=== PATIENT | male | born 1955 | race Caucasian/White ===

== ENCOUNTER 2020-05-22 10:33 | Emergency (ER) | payer OTHER ==
[~2020-05-22] VITALS: Ht 177.8 cm; Wt 126.1 kg
[2020-05-22] MEDS ORDERED: FUROSEMIDE 40 MG/4 ML INJ (LASIX) IVP STA (11:01)
--- NOTE | 2020-05-22 11:07 | ED Respiratory ---
General Chief Complaint: Respiratory Problems Stated Complaint: SOB Nursing Triage Note: Patient reports he has been short of breath for 2-3 days, states he has had some cough, no fever. States he went to the [facility] clinic and was sent to the ED for low oxygen saturations. Source: patient History of Present Illness Date Seen by Provider: May 22, 2020 Time Seen by Provider: 10:34 Initial Comments 65-year-old male presenting with complaints of increasing shortness of breath over the last 2 to 3 days. He also feels like he has been gaining weight and following up with fluid. He reports that he gets easily winded and out of breath with exertion. He denies any chest pain. He has been getting swelling in his legs. He has a history of diabetes and is on a couple types of insulin. He also takes a blood pressure medicine. He has a murmur and had an echocardiogram about a year ago but cannot remember what they told him the murmur was from. He had a negative Covid swab from [facility] on May 21. He was advised to come to ED yesterday but refused according to the [facility] when the clinic was contacted for history and med list. Allergies and Home Medications Allergies Coded Allergies: No Known Drug Allergies (Unverified , 05/22/20) Home Medications Amlodipine Besylate 10 Mg Tablet, 10 MG PO DAILY, (Reported) Atorvastatin Calcium 10 Mg Tablet, 10 MG PO DAILY, (Reported) Insulin Detemir 100 Unit/1 Ml Insuln.pen, 30 UNITS SC BID, (Reported) Insulin Lispro 100 Unit/1 Ml Insuln.pen, 20 UNITS SC TIDWM, (Reported) Lisinopril/Hydrochlorothiazide 1 Each Tablet, 1 TAB PO DAILY, (Reported) Metformin HCl 500 Mg Tab.er.24h, 1,000 MG PO BID, (Reported) Semaglutide 1 Mg/0.75 Ml Pen.injctr, 1.8 MG SC DAILY, (Reported) Patient Home Medication List Home Medication List Reviewed: Yes Review of Systems Review of Systems Constitutional: No chills, No fever; weight gain (reports over 18 pounds weight gain since seen May 08) EENTM: no symptoms reported Respiratory: No cough; dyspnea on exertion, orthopnea, short of breath; No stridor; wheezing Cardiovascular: No chest pain; edema; No palpitations, No syncope; vascular heart diseas (murmur and Echo from 09/09/19 shows Aortic Valve Stenosis, Mitral Valve Stenosis) Gastrointestinal: no symptoms reported Genitourinary: no symptoms reported Musculoskeletal: no symptoms reported Skin: no symptoms reported Psychiatric/Neurological: No Symptoms Reported Hematologic/Lymphatic: No Symptoms Reported Immunological/Allergic: no symptoms reported Past Qezccbf-Jjwisy-Rmfsvr Hx Past Med/Social Hx: Reviewed Nursing Past Med/Soc Hx Patient Social History Alcohol Use: Denies Use Smoking Status: Former Smoker Type Used: Cigarettes 2nd Hand Smoke Exposure: No Recent Infectious Disease Expo: No Recent Hopitalizations: No Seasonal Allergies Seasonal Allergies: No Past Medical History Surgeries: Yes (hand) Respiratory: No Cardiac: Yes Hypertension, Valvular Heart Disease (Aortic Valve Stenosis, Mitral Valve Stenosis August 2019 Echocardiogram) Neurological: No Genitourinary: No Gastrointestinal: No Musculoskeletal: No Endocrine: Yes Diabetes, Insulin dep HEENT: No Cancer: No Psychosocial: No Integumentary: No Physical Exam Vital Signs - First Documented 05/22/20 05/22/20 10:33 10:36 Temp 36.1 Pulse 110 Resp 24 B/P (MAP) 161/92 (115) Pulse Ox 95 O2 Delivery Non Rebreather O2 Flow Rate 15.00 Capillary Refill : Less Than 3 Seconds Height: '" Weight: lbs. oz. 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, alert, oriented x 3 Skin: normal color, warm/dry Focused Exam Lactate Level 05/22/20 11:00: Lactic Acid Level 1.11 Lactic Acid Level Laboratory Tests Test 05/22/20 11:00 Lactic Acid Level 1.11 MMOL/L (0.50-2.00) Progress/Results/Core Measures Suspected Sepsis Recent Fever Within 48 Hours: No Infection Criteria Present: Suspected New Infection New/Unexplained Altered Menta: No Sepsis Screen: Possible Sepsis Risk SIRS Temperature: Pulse: 110 Respiratory Rate: 24 Laboratory Tests 05/22/20 11:00: White Blood Count 7.7 Blood Pressure 161 /92 Mean: 115 05/22/20 11:00: Lactic Acid Level 1.11 Laboratory Tests 05/22/20 11:00: Creatinine 0.67, INR Comment 1.0, Platelet Count 312, Total Bilirubin 0.2 Results/Orders Lab Results Laboratory Tests Test 05/22/20 11:00 05/22/20 11:13 05/22/20 11:45 Range/Units White Blood Count 7.7 4.3-11.0 10^3/uL Red Blood Count 4.59 4.35-5.85 10^6/uL Hemoglobin 12.4 L 13.3-17.7 G/DL Hematocrit 41 40-54 % Mean Corpuscular Volume 89 80-99 FL Mean Corpuscular Hemoglobin 27 25-34 PG Mean Corpuscular Hemoglobin Concent 31 L 32-36 G/DL Red Cell Distribution Width 18.0 H 10.0-14.5 % Platelet Count 312 130-400 10^3/uL Mean Platelet Volume 9.8 7.4-10.4 FL Immature Granulocyte % (Auto) 0 % Neutrophils (%) (Auto) 79 H 42-75 % Lymphocytes (%) (Auto) 12 12-44 % Monocytes (%) (Auto) 7 0-12 % Eosinophils (%) (Auto) 2 0-10 % Basophils (%) (Auto) 0 0-10 % Neutrophils # (Auto) 6.1 1.8-7.8 X 10^3 Lymphocytes # (Auto) 0.9 L 1.0-4.0 X 10^3 Monocytes # (Auto) 0.6 0.0-1.0 X 10^3 Eosinophils # (Auto) 0.1 0.0-0.3 10^3/uL Basophils # (Auto) 0.0 0.0-0.1 10^3/uL Immature Granulocyte # (Auto) 0.0 0.0-0.1 10^3/uL Prothrombin Time 13.4 12.2-14.7 SEC INR Comment 1.0 0.8-1.4 Activated Partial Thromboplast Time 31 24-35 SEC D-Dimer 1.85 H 0.00-0.49 UG/ML Sodium Level 144 135-145 MMOL/L Potassium Level 4.4 3.6-5.0 MMOL/L Chloride Level 105 98-107 MMOL/L Carbon Dioxide Level 32 21-32 MMOL/L Anion Gap 7 5-14 MMOL/L Blood Urea Nitrogen 21 H 7-18 MG/DL Creatinine 0.67 0.60-1.30 MG/DL Estimat Glomerular Filtration Rate > 60 BUN/Creatinine Ratio 31 Glucose Level 150 H 70-105 MG/DL Lactic Acid Level 1.11 0.50-2.00 MMOL/L Calcium Level 9.1 8.5-10.1 MG/DL Corrected Calcium 9.7 8.5-10.1 MG/DL Magnesium Level 1.6 1.6-2.4 MG/DL Total Bilirubin 0.2 0.1-1.0 MG/DL Aspartate Amino Transf (AST/SGOT) 20 5-34 U/L Alanine Aminotransferase (ALT/SGPT) 22 0-55 U/L Alkaline Phosphatase 131 40-136 U/L Troponin I < 0.30 <0.30 NG/ML C-Reactive Protein 1.34 H <0.50 MG/DL Pro-B-Type Natriuretic Peptide 255.2 H <75.0 PG/ML Total Protein 6.8 6.4-8.2 GM/DL Albumin 3.3 3.2-4.5 GM/DL Blood Gas Puncture Site LT RADIAL Blood Gas Patient Temperature 36.1 Arterial Blood pH 7.44 H 7.37-7.43 Arterial Blood Partial Pressure CO2 53 H 35-45 MMHG Arterial Blood Partial Pressure O2 86 79-93 MMHG Arterial Blood HCO3 36 H 23-27 MMOL/L Arterial Blood Total CO2 37.6 H 21.0-31.0 MMOL/L Arterial Blood Oxygen Saturation 97 94-100 % Arterial Blood Base Excess 10.1 H -2.5-2.5 MMOL/L Anoop Test OK Blood Gas Ventilator Setting NO Blood Gas Inspired Oxygen 8 L Urine Color YELLOW Urine Clarity CLEAR Urine pH 6.5 5-9 Urine Specific Center 1.025 H 1.016-1.022 Urine Protein 2+ H NEGATIVE Urine Glucose (UA) NEGATIVE NEGATIVE Urine Ketones NEGATIVE NEGATIVE Urine Nitrite NEGATIVE NEGATIVE Urine Bilirubin NEGATIVE NEGATIVE Urine Urobilinogen 0.2 < = 1.0 MG/DL Urine Leukocyte Esterase NEGATIVE NEGATIVE Urine RBC (Auto) 1+ H NEGATIVE Urine RBC 5-10 H /HPF Urine WBC 0-2 /HPF Urine Squamous Epithelial Cells NONE /HPF Urine Crystals NONE /LPF Urine Bacteria NEGATIVE /HPF Urine Casts NONE /LPF Urine Mucus NEGATIVE /LPF Urine Culture Indicated NO My Orders Orders - ROCKY CORTÉS MD Monitor-Rhythm Ecg Trace Only (05/22/20 10:57) Cbc With Automated Diff (05/22/20 10:57) Comprehensive Metabolic Panel (05/22/20 10:57) Crp Fs (05/22/20 10:57) Troponin I Fs (05/22/20 10:57) Protime With Inr (05/22/20 10:57) Partial Thromboplastin Time (05/22/20 10:57) Ekg Tracing (05/22/20 10:57) Ed Iv/Invasive Line Start (05/22/20 10:57) Fibrin Degradation Products (05/22/20 10:57) Probnp Fs (05/22/20 10:57) Magnesium (05/22/20 10:57) Ua Culture If Indicated (05/22/20 10:57) O2 (05/22/20 10:57) Chest 1 View Ap/Pa Only (05/22/20 10:57) Blood Culture (05/22/20 10:57) Lactic Acid Analyzer (05/22/20 10:57) Furosemide Injection (Lasix Injection) (05/22/20 11:01) Arterial Blood Gas (05/22/20 11:15) Ct Angio Chest W (05/22/20 12:11) Iohexol Injection (Omnipaque 350 Mg/Ml 1 (05/22/20 12:30) Received Contrast (Hold Metformin- Contr (05/22/20 12:30) Sodium Chloride Flush (Catheter Flush Sy (05/22/20 12:30) Ns (Ivpb) (Sodium Chloride 0.9% Ivpb Bag (05/22/20 12:30) Ceftriaxone For Iv Use (Rocephin For I (05/22/20 13:23) Azithromycin Injection (Zithromax Inject (05/22/20 13:23) Medications Given in ED Current Medications Medications Dose Ordered Sig/Alexander Route Start Time Stop Time Status Last Admin Dose Admin Iohexol 125 ml ONCE ONCE IV 05/22/20 12:30 05/22/20 12:31 DC 05/22/20 12:50 125 ML Sodium Chloride 10 ml NEEDED PRN IV 05/22/20 12:30 05/22/20 12:50 10 ML Sodium Chloride 100 ml ONCE ONCE IV 05/22/20 12:30 05/22/20 12:31 DC 05/22/20 12:50 80 ML Vital Signs/I&O 05/22/20 05/22/20 10:33 10:36 Temp 36.1 Pulse 110 Resp 24 B/P (MAP) 161/92 (115) Pulse Ox 95 95 O2 Delivery Non Rebreather Non Rebreather O2 Flow Rate 15.00 Capillary Refill : Less Than 3 Seconds Blood Pressure Mean: 115 Progress Note #1: Progress Note check labs, ECG, CXR, blood cultures and lactic acid. With his tachycardia and shortness of breath with hypoxia check ABG and place on cardiac potato chip frier to watch his heart rate and blood pressure and oxygen saturation. Initially he is sinus tachycardia without ectopy. With his edema and decreased breath sounds will try giving 80 mg of IV lasix to see if that will help mobilize fluid and make a difference with his breathing. Progress Note #2: Time: 11:39 Progress Note Blood gas is showing pH of 7.44 with pCO2 of 53, pO2 of 86 and HCO3 of 36 on 8 Lpm high flow O2 by n.c. His CBC shows WBC of 7.7 with left shift and Hgb 12.4. ECG with sinus tachycardia and CXR with infiltrate. On my review of CXR he appears to have signs of failure consistent with his weight gain. Progress Note #3: Time: 12:10 Progress Note Chemistry shows negative Troponin at <0.3. proBNP slightly elevated to 255. CRP at 1.34. Cr normal at 0.67. His Lactic Acid is normal at 1.11. He has an elevated D dimer as well at 1.85 so will add on CT angiogram for check to see if he has a blood clot. This will also check to see more detail of his lungs and the possible pneumonia vs pulmonary edema. Pt requesting admit to [facility] since his follows with Dr. Reynaldo Welsh and he would like to go to that hospital rather than go to [facility] for admit. Updated pt on findings and that depending on scan he will get antibiotics and or blood thinner. He was already given Lasix 80 mg IV for his weight gain and edema in his legs. Progress Note #4: Time: 13:[address] chest shows no PE but he has bilateral basilar pneumonia and signs of fail ure. [facility] was contacted and they do have beds available and the nursing rocket propellant plant supervisor advised to call Dr. Welsh and if he accepted the patient to call back and then could have a bed assignment. Will start Rocephin and Zithromax for community acquired pneumonia. Progress Note #5: Time: 13:38 Progress Note D/w Dr. Reynaldo Welsh and he accepted pt for transfer to [facility]. Will continue with treatment for pneumonia and fluid overload. send copy of the Echo and may get a repeat study done since he has signs of failure now. ECG Initial ECG Impression Date: May 22, 2020 Initial ECG Impression Time: 11:03 Initial ECG Rate: 104 Initial ECG Rhythm: S.Tach Initial ECG Comparisson: No Previous ECG Available Comment Sinus tachycardia with heart rate of 104 bpm. Incomplete right bundle branch block. Left atrial enlargement. NJ interval 141 ms. QT interval 383 ms with a QTc interval [address] elevation. No prior tracing available for comparison. Diagnostic Imaging Diagonstic Imaging: Xray Plain Films/CT/US/NM/MRI: chest Comments NAME: [facility] REC#: [id number] PT STATUS: REG ER : 1955 PHYSICIAN: ROCKY CORTÉS MD ADMIT DATE: 05/22/20/ER FS Signed Date of Exam:05/22/20 CHEST 1 VIEW AP/PA ONLY INDICATION: Hypoxemia. EXAMINATION: Portable chest at 11:11 AM. FINDINGS: There are some patchy alveolar infiltrates in the left perihilar and left basilar pulmonary regions. The right lung is clear. IMPRESSION: Patchy infiltrates in the left lung, suspicious for pneumonia. Dictated by: Dictated on workstation # [id number] Dict: 05/22/20 1125 Trans: 05/22/20 1129 [id number] Interpreted by: BETI PEREZ MD Electronically signed by: BETI PEREZ MD 05/22/20 1129 Diagonstic Imaging: Ultrasound (Echocardiogram from August 2019) Comments Echocardiogram performed on September 102019 Impression: 1. Technically difficult study. 2. Normal left ventricular systolic function, estimated ejection fraction 55 to 60%. 3. Mild concentric left ventricular hypertrophy. 4. Mild diastolic dysfunction. 5. Moderate aortic valve stenosis with a mean gradient of 25 mmHg. 6. Mild left atrial enlargement. 7. Calcification of left mitral valve with immobility of the posterior mitral valve leaflet leading to mild to moderate mitral stenosis. 8. Pulmonary hypertension with estimated PA systolic pressure of 44 mmHg. 9. Small patent foramen ovale noted by color flow and Doppler. This was read by Dr. Trevor Salazar DO. Diagonstic Imaging: CT Plain Films/CT/US/NM/MRI: chest Comments NAME: [facility] REC#: [id number] PT STATUS: REG ER : 1955 PHYSICIAN: ROCKY CORTÉS MD ADMIT DATE: 05/22/20/ER FS Draft Date of Exam:05/22/20 CT ANGIO CHEST W PROCEDURE: CT angiography of the chest with contrast. TECHNIQUE: Multiple contiguous axial images were obtained through the chest after uneventful bolus administration of intravenous contrast. 3D reconstructed CTA MIP acquisitions were also performed. Auto Exposure Controls were utilized during the CT exam to meet ALARA standards for radiation dose reduction. INDICATION: Shortness of breath elevated D-dimer. There are no prior CTA chest examinations available for comparison. The plain film examination of the chest performed earlier today at 11:10 a.m. noted cardiomegaly and prominence of the central pulmonary vascularity. There are also patchy alveolar/interstitial infiltrates involving the lung bases as well as small bilateral pleural effusions. On this exam those findings are again evident. The fluid in the right lung base measures approximately 3.9 cm in maximum depth while left-sided effusion is estimated to be 1.9 cm. In addition there is also a 2.4 x 7.3 cm collection of fluid in the region of the minor fissure on the left as well as a 3.1 x 4.9 cm fluid collection adjacent to the left heart border.. There is also pneumonia/atelectasis involving both lung bases and both perihilar regions. The central pulmonary vascularity is prominent and I suspect there is an element of pulmonary congestion present as well. The heart is mildly enlarged. There are no coronary artery calcifications noted. The aorta is not abnormally dilated and there is no sign of dissection. There is no definite defect within the pulmonary arteries to indicate a pulmonary embolus. There are diffuse borderline enlarged pretracheal nodes on the right. These are nonspecific and may be reactive in nature. The thyroid gland is generally unremarkable. The sections through the upper abdomen failed to show any sign of an acute abnormality. The bone windows show no sign of a fracture or of a destructive lesion. IMPRESSION: 1. There is bibasilar pneumonia/atelectasis and bilateral pleural effusions. The heart is also mildly enlarged and the central pulmonary vasculature is prominent suggesting that there is an element of pulmonary congestion present as well. 2. There is no evidence for an aortic aneurysm or dissection. There is no sign of a pulmonary embolus. Dictated on workstation # [id number] Dict: 05/22/20 1256 Trans: 05/22/20 1308 [facility] [id number] Interpreted by: TEA HAZEL MD Electronically signed by: Critical Care Note Critical Care Total Time (minutes) 75 minutes Progress 75 minutes of critical care time was spent in direct care of the patient. This time excluding separately billable procedures. The time was spent in obtaining history from the patient and medical records from the clinic, ordering tests and reviewing results, ordering interventions and reviewing response, discussion of results with the patient and with consultants, documentation in the chart. Patient was at imminent risk of decompensation from respiratory distress and required direct care and management. Departure Impression Primary Impression: Pneumonia of both lower lobes due to infectious organism Additional Impressions: Hypoxia Peripheral edema Pulmonary edema Qualified Codes: J81.0 - Acute pulmonary edema Disposition: XF [facility] Condition: Stable Transfer Transfer Reason: Patient preference (Pt requests [facility] as his follows with Dr. Reynaldo Welsh and he states it is closer to home) Time Spoke to Accepting Phy: 13:38 Transfer Progress Notes D/w Dr. Reynaldo Welsh for [facility] and he accepted pt for transfer. will continue with oxygen and try to titrate down on high flow O2. Ok with the dose of Lasix and Rocephin and Zithromax. If he starts to cough up sputum can try to get a sputum culture but blood cultures pending. Transfer Facility: [facility] Method of Transfer: EMS ROCKY CORTÉS MD May 22, 2020 11:07
[2020-05-22] MEDS ORDERED: AMLO-251 PO (11:16)
[2020-05-22] MEDS ORDERED: LISI1TAB46 PO (11:16)
[2020-05-22] MEDS ORDERED: METF-865 PO (11:16)
[2020-05-22] MEDS ORDERED: SEMA1PEN SC (11:16)
[2020-05-22] MEDS ORDERED: INSU100I23 SC (11:16)
[2020-05-22] MEDS ORDERED: ATOR10TA66 PO (11:16)
[2020-05-22] MEDS ORDERED: INSU100I29 SC (11:16)
[2020-05-22 11:17] LABS: BASOPHILS % (AUTO) 0 % (0-10); EOSINOPHILS % (AUTO) 2 % (0-10); HEMATOCRIT 41 % (40-54); HEMOGLOBIN 12.4 G/DL (13.3-17.7); LYMPHOCYTES % (AUTO) 12 % (12-44); MEAN CORPUSCULAR HEMOGLOBIN 27 PG (25-34); MEAN CORPUSCULAR HGB CONC 31 G/DL (32-36); MEAN CORPUSCULAR VOLUME 89 FL (80-99); MEAN PLATELET VOLUME 9.8 FL (7.4-10.4); MONOCYTES % (AUTO) 7 % (0-12); NEUTROPHILS % (AUTO) 79 % (42-75); PLATELET COUNT 312 10^3/uL (130-400); WHITE BLOOD COUNT 7.7 10^3/uL (4.3-11.0)
[2020-05-22 11:18] LABS: EOSINOPHILS # (AUTO) 0.1 10^3/uL (0.0-0.3); LYMPHOCYTES # (AUTO) 0.9 X 10^3 (1.0-4.0); MONOCYTES # (AUTO) 0.6 X 10^3 (0.0-1.0); NEUTROPHILS # (AUTO) 6.1 X 10^3 (1.8-7.8)
--- NOTE | 2020-05-22 11:28 | Diagnostic Imaging Report ---
INDICATION: Hypoxemia. EXAMINATION: Portable chest at 11:11 AM. FINDINGS: There are some patchy alveolar infiltrates in the left perihilar and left basilar pulmonary regions. The right lung is clear. IMPRESSION: Patchy infiltrates in the left lung, suspicious for pneumonia. Dictated by: Dictated on workstation # [id number]
[2020-05-22 11:33] LABS: ABG PCO2 53 MMHG (35-45); ABG PH 7.44 (7.37-7.43); ABG PO2 86 MMHG (79-93)
[2020-05-22 11:34] LABS: ABG BASE EXCESS 10.1 MMOL/L (-2.5-2.5); ABG OXYGEN SATURATION 97 % (94-100); ABG TCO2 37.6 MMOL/L (21.0-31.0); ALLENS TEST OK; INSPIRED O2 8 L; PATIENT TEMP 36.1; VENTILATOR NO
[2020-05-22 11:59] LABS: PROTHROMBIN TIME PATIENT 13.4 SEC (12.2-14.7)
[2020-05-22 12:00] LABS: BILIRUBIN,URINE NEGATIVE (NEGATIVE); CLARITY,URINE CLEAR; COLOR,URINE YELLOW; GLUCOSE, URINE (UA) NEGATIVE (NEGATIVE); KETONES,URINE NEGATIVE (NEGATIVE); NITRITE,URINE NEGATIVE (NEGATIVE); PH,URINE 6.5 (5-9); PROTEIN,URINE 2+ (NEGATIVE)
[2020-05-22 12:01] LABS: BACTERIA,URINE NEGATIVE /HPF; LEUKOCYTE ESTERASE ,URINE NEGATIVE (NEGATIVE); WBC,URINE 0-2 /HPF
[2020-05-22 12:02] LABS: POTASSIUM 4.4 MMOL/L (3.6-5.0); SODIUM 144 MMOL/L (135-145)
[2020-05-22 12:03] LABS: ALANINE AMINOTRANSFERASE 22 U/L (0-55); ALBUMIN 3.3 GM/DL (3.2-4.5); ALKALINE PHOSPHATASE 131 U/L (40-136); BILIRUBIN,TOTAL 0.2 MG/DL (0.1-1.0); BUN/CREATININE RATIO 31; CALCIUM 9.1 MG/DL (8.5-10.1); CARBON DIOXIDE 32 MMOL/L (21-32); CHLORIDE 105 MMOL/L (98-107); CREATININE SERUM 0.67 MG/DL (0.60-1.30); GFR ESTIMATED > 60; GLUCOSE 150 MG/DL (70-105); TOTAL PROTEIN 6.8 GM/DL (6.4-8.2)
[2020-05-22 12:04] LABS: MAGNESIUM 1.6 MG/DL (1.6-2.4)
[2020-05-22] MEDS ORDERED: IOHEXOL 350 MG/ML 150 ML (OMNIPAQUE 350) VIAL IV ONE (12:30)
[2020-05-22] MEDS ORDERED: NS 100 ML (IVPB) BAG IV ONE (12:30)
[2020-05-22] MEDS ORDERED: CATHETER FLUSH 10 ML SYR IV PRN (12:30)
[2020-05-22] MEDS ORDERED: HOLD METFORMIN - RECEIVED CONTRAST 20 ML VIAL IV SCH (12:30)
--- NOTE | 2020-05-22 13:09 | Diagnostic Imaging Report ---
PROCEDURE: CT angiography of the chest with contrast. TECHNIQUE: Multiple contiguous axial images were obtained through the chest after uneventful bolus administration of intravenous contrast. 3D reconstructed CTA MIP acquisitions were also performed. Auto Exposure Controls were utilized during the CT exam to meet ALARA standards for radiation dose reduction. INDICATION: Shortness of breath elevated D-dimer. There are no prior CTA chest examinations available for comparison. The plain film examination of the chest performed earlier today at 11:10 a.m. noted cardiomegaly and prominence of the central pulmonary vascularity. There are also patchy alveolar/interstitial infiltrates involving the lung bases as well as small bilateral pleural effusions. On this exam those findings are again evident. The fluid in the right lung base measures approximately 3.9 cm in maximum depth while left-sided effusion is estimated to be 1.9 cm. In addition there is also a 2.4 x 7.3 cm collection of fluid in the region of the minor fissure on the left as well as a 3.1 x 4.9 cm fluid collection adjacent to the left heart border.. There is also pneumonia/atelectasis involving both lung bases and both perihilar regions. The central pulmonary vascularity is prominent and I suspect there is an element of pulmonary congestion present as well. The heart is mildly enlarged. There are no coronary artery calcifications noted. The aorta is not abnormally dilated and there is no sign of dissection. There is no definite defect within the pulmonary arteries to indicate a pulmonary embolus. There are diffuse borderline enlarged pretracheal nodes on the right. These are nonspecific and may be reactive in nature. The thyroid gland is generally unremarkable. The sections through the upper abdomen failed to show any sign of an acute abnormality. The bone windows show no sign of a fracture or of a destructive lesion. IMPRESSION: 1. There is bibasilar pneumonia/atelectasis and bilateral pleural effusions. The heart is also mildly enlarged and the central pulmonary vasculature is prominent suggesting that there is an element of pulmonary congestion present as well. 2. There is no evidence for an aortic aneurysm or dissection. There is no sign of a pulmonary embolus either. Dictated by: Dictated on workstation # [id number]
[2020-05-22] MEDS ORDERED: AZITHROMYCIN INJECTION 500 MG in NS (IVPB) 250 ML IV STA (13:23)
[2020-05-22] MEDS ORDERED: cefTRIAXone FOR IV USE 1,000 MG in WATER (STERILE) FOR INJECTION 10 ML IV STA (13:23)
[2020-05-22 14:30] VITALS: BP 148/81
== END 2020-05-22 14:30 | disposition short-term general hospital (02) ==
LOC: EDUNIT# 10:33 → ER FS 10:36
DX: J18.1 Lobar pneumonia, unspecified organism (principal); R60.0 Localized edema; R79.89 Other specified abnormal findings of blood chemistry; R00.0 Tachycardia, unspecified; I10 Essential (primary) hypertension; E11.9 Type 2 diabetes mellitus without complications; E66.9 Obesity, unspecified; Z68.39 Body mass index [BMI] 39.0-39.9, adult; Z87.891 Personal history of nicotine dependence; Z79.4 Long term (current) use of insulin
CPT/HCPCS: 36415; 71045; 71275; 80053; 81000; 82805; 83605; 83735; 83880; 84484; 85025; 85379; 85610; 85730; 86141; 87040; 93041

== ENCOUNTER → 2021-07-16 | Outpatient (CLI) | payer OTHER ==
[~2021-07-16] VITALS: Ht 180.3 cm; Wt 109.9 kg
[~2021-07-16] MED LIST: AMLO-251 PO; ASPI81TA16 PO; ATOR10TA66 PO; CEPH500T PO; INSU100I23 SC; INSU100I29 SC; LIRA0.6P3 SQ; LISI1TAB46 PO; METF-865 PO; OXYC1TAB11 PO; SEMA1PEN SC
== END | disposition home or self-care (01) ==
LOC: PREOP 05:37
PROVIDERS: ATTEND Urology
DX: Z01.818 Encounter for other preprocedural examination (principal)

== ENCOUNTER 2021-07-23 06:41 | Day surgery (SDC) | payer OTHER ==
[2021-07-23] VITALS (12 sets, daily range): BP systolic 125–155; BP diastolic 71–95
[~2021-07-23] VITALS: Ht 180.3 cm; Wt 109.9 kg
[~2021-07-23 06:41] MED LIST changes: -CEPH500T PO; -OXYC1TAB11 PO
[2021-07-23] MEDS ORDERED: ceFAZolin INJECTION 1,000 MG VIAL IV ONE (07:15)
--- NOTE | 2021-07-23 07:15 | Progress Note-Pre Operative ---
Pre-Operative Progress Note H&P Reviewed The H&P was reviewed, patient examined and no changes noted. Date Seen by Provider: July 23, 2021 Time Seen by Provider: 07:15 Date H&P Reviewed: July 23, 2021 Time H&P Reviewed: 07:15 Pre-Operative Diagnosis: LT LARGE HYDROCELE RANDALL SCHOFIELD MD July 23, 2021 07:15
--- NOTE | 2021-07-23 07:48 | Progress Note-Post Operative ---
Post-Operative Progess Note Surgeon (s)/Lean [employer] Senior Specialist (s) Surgeon RANDALL SCHOFIELD MD Lean [employer] Senior Specialist: NONE Pre-Operative Diagnosis LT LARGE HYDROCELE Post-Operative Diagnosis SAME Procedure & Operative Findings Date of Procedure 07/23/21 Procedure Performed/Findings LT HYDROCELECTOMY Anesthesia Type GENERAL Estimated Blood Loss Estimated blood loss (mL): 50 cc Specimens/Packing Specimens Removed HYDROCELE SAC Packin/4" KRYSTA DRAIN RANDALL SCHOFIELD MD July 23, 2021 07:48
--- NOTE | 2021-07-23 07:51 | Discharge Inst-Urology ---
Discharge Inst-Urology Patient Instructions/Follow Up Plan/Assessment/Instructions Please make appointment to been seen in office in 2 weeks. REST till then and scrotal support Come to office tomorrow at 9am to DC drain then start showers no bath Keep bowels soft and moving Hold ASA Increase oral fluids for 48 hours and then as needed. Diet as tolerated. If questions or concerns contact your physician Or seek help at emergency department. RANDALL SCHOFIELD MD July 23, 2021 07:51
[2021-07-23] MEDS ORDERED: LACTATED RINGERS 1,000 ML IV PRN (08:00)
[2021-07-23] MEDS ORDERED: ONDANSETRON 4 MG/2 ML (SDV) Z0FRAN ONE (08:13)
[2021-07-23] MEDS ORDERED: LIDOCAINE PF 2% 5 ML (XYLOCAINE) VIAL ONE (08:13)
[2021-07-23] MEDS ORDERED: proPOfol 200 MG/20 ML (DIPRIVAN) VIAL IV ONE (08:13)
[2021-07-23] MEDS ORDERED: MIDAZOLAM 2 MG/2 ML (VERSED) VIAL ONE (08:14)
[2021-07-23] MEDS ORDERED: fentaNYL INJ 100 MCG/2 ML AMP ONE (08:14)
[2021-07-23] MEDS ORDERED: SEVOFLURANE (ULTANE) 15 ML INHAL SOLN ONE (09:55)
[2021-07-23] MEDS ORDERED: morphine INJ 10 MG/ML 1ML (SYR OR VIAL) IVP ONE (10:00)
[2021-07-23] MEDS ORDERED: ONDANSETRON 4 MG/2 ML (SDV) Z0FRAN IVP PRN (10:00)
[2021-07-23] MEDS ORDERED: CEPH500T PO (11:26)
[2021-07-23] MEDS ORDERED: OXYC1TAB11 PO (11:27)
--- NOTE | 2021-07-23 11:48 | OPERATIVE REPORT ---
DATE OF SERVICE: 07/23/2021 PREOPERATIVE DIAGNOSIS: Left large hydrocele. POSTOPERATIVE DIAGNOSIS: Left large hydrocele. OPERATION PERFORMED: Left hydrocelectomy. SURGEON: Oscar Schofield MD ANESTHESIA: General. COMPLICATIONS: None. DESCRIPTION OF PROCEDURE: Under satisfactory general anesthesia, the patient in supine position, genitalia, abdomen and thigh were prepped and draped in the usual sterile fashion. Incision was made in the median raphe, carried through skin, subcutaneous tissue and fascia. Bleeders were cauterized as dissection was proceeding. A very large amount of fluid was suctioned. The testicle and appendages were delivered into the wound. It was found that the testicle was small and adherent and stuck to the wall of the scrotum in the middle. I went ahead and excised the hydrocele sac and the edges were sutured with a running hemostatic 3-0 chromic catgut suture. Hemostasis was complete. The scrotum was drained with a one-quarter of an inch [place] drain brought through a separate stab wound at the bottom of the scrotum secured in position with 3-0 chromic. Closure was performed in layer, the dartos with a running 3-0 chromic catgut, taking care to avoid the testicle and its spermatic cord and then the skin with interrupted 4-0 Vicryl. Telfa, fluffs and scrotal support was applied. Estimated blood loss was less than 50 mL, none of which was replaced. Needle, sponge, instruments correct x2. The patient tolerated the procedure and anesthesia well and was sent to recovery room in stable condition. Job ID: [id number] DocumentID: [id number] Dictated Date: 07/23/2021 09:56:33 Back Maker Date: 07/23/2021 11:46:41 Dictated By: OSCAR SCHOFIELD MD
--- NOTE | 2021-07-23 12:00 | Anesthesia-General Post-Op ---
General Patient Condition Mental Status/LOC: Same as Preop Cardiovascular: Satisfactory Nausea/Vomiting: Absent Respiratory: Satisfactory Pain: Controlled Complications: Absent Post Op Complications Complications None Follow Up Care/Instructions Patient Instructions None needed. Anesthesia/Patient Condition Patient Condition Patient is doing well, ready for discharge to home with no complaints, stable vital signs, no apparent adverse anesthesia problems. BRAIN HERRMANN DO July 23, 2021 12:00
== END 2021-07-23 12:03 | disposition home or self-care (01) ==
LOC: SDC 06:41
PROVIDERS: ATTEND Urology
DX: N43.3 Hydrocele, unspecified (principal); E66.9 Obesity, unspecified; Z68.34 Body mass index [BMI] 34.0-34.9, adult; Z87.891 Personal history of nicotine dependence
CPT/HCPCS: 82947; 87081

== ENCOUNTER 2021-08-07 21:11 | Emergency (ER) | payer OTHER ==
[2021-07-23 12:03] VITALS: BP 139/78
[~2021-08-07 21:11] MED LIST changes: +CEPH500T PO; +OXYC1TAB11 PO
[2021-08-07 23:05] LABS: BASOPHILS % (AUTO) 0 % (0-10); EOSINOPHILS # (AUTO) 0.3 10^3/uL (0.0-0.3); EOSINOPHILS % (AUTO) 4 % (0-10); HEMATOCRIT 40 % (40-54); HEMOGLOBIN 12.9 g/dL (13.3-17.7); LYMPHOCYTES # (AUTO) 0.9 10^3/uL (1.0-4.0); LYMPHOCYTES % (AUTO) 12 % (12-44); MEAN CORPUSCULAR HEMOGLOBIN 29 pg (25-34); MEAN CORPUSCULAR HGB CONC 33 g/dL (32-36); MEAN CORPUSCULAR VOLUME 88 fL (80-99); MEAN PLATELET VOLUME 8.9 fL (9.0-12.2); MONOCYTES # (AUTO) 0.5 10^3/uL (0.0-1.0); MONOCYTES % (AUTO) 7 % (0-12); NEUTROPHILS # (AUTO) 5.7 10^3/uL (1.8-7.8); NEUTROPHILS % (AUTO) 76 % (42-75); PLATELET COUNT 572 10^3/uL (130-400); WHITE BLOOD COUNT 7.5 10^3/uL (4.3-11.0)
[2021-08-07 23:19] LABS: ALBUMIN 3.4 GM/DL (3.2-4.5); POTASSIUM 4.4 MMOL/L (3.6-5.0)
[2021-08-07 23:20] LABS: CALCIUM 9.7 MG/DL (8.5-10.1)
[2021-08-07 23:22] LABS: TOTAL PROTEIN 7.8 GM/DL (6.4-8.2)
[2021-08-07 23:23] LABS: BILIRUBIN,TOTAL 0.2 MG/DL (0.1-1.0)
[2021-08-07 23:25] LABS: CREATININE SERUM 0.8 MG/DL (0.60-1.30)
[2021-08-08] MEDS ORDERED: METO-333 PO (10:36)
[2021-08-08] MEDS ORDERED: INSU100I29 SQ ×2 (10:36)
[2021-08-08] MEDS ORDERED: CHOL20002 PO (10:36)
[2021-08-08] MEDS ORDERED: FURO20TA4 PO (10:36)
[2021-08-08] MEDS ORDERED: ATOR40TA70 PO (10:36)
[2021-08-08] MEDS ORDERED: DAPA1TAB3 PO (10:36)
[2021-08-08] MEDS ORDERED: ASPI-1238 PO (10:36)
[2021-08-08] MEDS ORDERED: INSU100I23 SQ (10:36)
== END 2021-08-07 23:36 | disposition other institution (70) ==
LOC: EDUNIT# 21:11 → ER 21:15
DX: N50.89 Other specified disorders of the male genital organs (principal)
CPT/HCPCS: 36415; 80053; 85025

== ENCOUNTER 2021-08-07 23:31 | Observation (INO) | payer OTHER ==
[~2021-08-07] VITALS: Ht 180.3 cm; Wt 104.1 kg
[2021-08-07] MEDS ORDERED: oxyCODONE/APAP 5/325MG (PERCOCET 5) TABLET PO PRN (23:45)
[2021-08-08 00:10] VITALS: BP 130/66
[2021-08-08] MEDS: LACTATED RINGERS 1,000 ML IV SCH ×2 (00:25→14:20)
[2021-08-08] MEDS: CEFEPIME 1,000 MG/NS 50 ML IVPB IV SCH ×8 (01:46→18:32)
[2021-08-08] MEDS: VANCOMYCIN 1 GM/NS 250 ML IVPB IV SCH ×4 (02:46→04:00)
[2021-08-08 04:00] VITALS: BP 167/79
[2021-08-08 05:54] LABS: POTASSIUM 4.2 MMOL/L (3.6-5.0)
[2021-08-08 05:56] LABS: CALCIUM 9.1 MG/DL (8.5-10.1)
[2021-08-08 05:57] LABS: TOTAL PROTEIN 6.8 GM/DL (6.4-8.2)
[2021-08-08 05:59] LABS: BILIRUBIN,TOTAL 0.2 MG/DL (0.1-1.0)
[2021-08-08 06:00] LABS: CREATININE SERUM 0.65 MG/DL (0.60-1.30)
[2021-08-08 06:08] LABS: HEMATOCRIT 37 % (40-54); HEMOGLOBIN 12.1 g/dL (13.3-17.7); MEAN CORPUSCULAR HEMOGLOBIN 29 pg (25-34); MEAN CORPUSCULAR HGB CONC 33 g/dL (32-36); MEAN CORPUSCULAR VOLUME 89 fL (80-99); MEAN PLATELET VOLUME 9.3 fL (9.0-12.2); PLATELET COUNT 492 10^3/uL (130-400); WHITE BLOOD COUNT 6.1 10^3/uL (4.3-11.0)
[2021-08-08 08:21] VITALS: BP 152/83
[2021-08-08] MEDS ORDERED: CHOL20002 PO (10:36)
[2021-08-08] MEDS ORDERED: METO-333 PO (10:36)
[2021-08-08] MEDS ORDERED: ATOR40TA70 PO (10:36)
[2021-08-08] MEDS ORDERED: ASPI-1238 PO (10:36)
[2021-08-08] MEDS ORDERED: INSU100I23 SQ (10:36)
[2021-08-08] MEDS ORDERED: FURO20TA4 PO (10:36)
[2021-08-08] MEDS ORDERED: INSU100I29 SQ ×2 (10:36)
[2021-08-08] MEDS ORDERED: DAPA1TAB3 PO (10:36)
--- NOTE | 2021-08-08 11:02 | Consultation - Hospitalist ---
HPI History of Present Illness: HPI/Chief Complaint Patient is 66-year-old male with past medical history of insulin- dependent diabetes type 2, hypertension, hyperlipidemia who presented to outside hospital due to scrotal edema. He underwent a hydrocelectomy on July [address] Jimenez. He is being admitted for IV antibiotics to rule out abscess. I am consulted for medical management. He reports that he wears a Dexcom to monitor his blood sugars and is compliant with his insulin. He states his blood sugars normally run around 130. Source: patient Date Seen 08/08/21 Attending Physician Reynaldo Welsh MD PCP Admitting Physician: Oscar Jimenez MD Attending Physician: Oscar Jimenez MD Referring Physician Date of Admission August 07, 2021 at 23:31 Home Medications & Allergies Home Medications Reviewed patient Home Medication Reconciliation performed by pharmacy medication reconciliations cartographic technician and/or nursing. Patients Allergies have been reviewed. Allergies Allergies Coded Allergies No Known Drug Allergies (Unverified05/22/20) Past Ayeyyls-Dwtavg-Ipuxqd Hx Patient Social History Tobacco Use?: No Substance use?: No Alcohol Use?: No Immunizations Up To Date Date of Influenza Vaccine: Jan 15, 2021 First/Initial COVID19 Vaccinat: 2020 Second COVID19 Vaccination Kory: 2020 Seasonal Allergies Seasonal Allergies: No Current Status Advance Directives: No Communicates: Verbally Primary Language: Macanese Preferred Spoken Language: Macanese Is interpretation needed?: No Implanted or Applied Medical D: Other Past Medical History Surgeries: Orthopedic Currently Using CPAP: No Currently Using BIPAP: No Hypertension, Valvular Heart Disease Diabetes, Insulin dep Family Medical History Reviewed Nursing Family Hx No Pertinent Family Hx Review of Systems Constitutional: No chills, No fever EENTM: no symptoms reported Respiratory: no symptoms reported Cardiovascular: no symptoms reported Gastrointestinal: no symptoms reported Genitourinary: see HPI Musculoskeletal: no symptoms reported Skin: no symptoms reported Psychiatric/Neurological: No Symptoms Reported Physical Exam Physical Exam Vital Signs Vital Signs - First Documented Capillary Refill : Height, Weight, BMI Height: '" Weight: lbs. oz. kg; 32.02 BMI Method: General Appearance: No Apparent Distress, WD/WN HEENT: PERRL/EOMI, Moist Mucous Membranes Neck: Normal Inspection, Supple Respiratory: Lungs Clear, No Respiratory Distress Cardiovascular: Regular Rate, Rhythm, No Murmur Gastrointestinal: Normal Bowel Sounds, Non Tender, Soft Genital/Rectal: Other (scrotal edema noted, elevated on pillow) Extremity: Normal Capillary Refill, No Calf Tenderness, No Pedal Edema Neurologic/Psychiatric: Alert, Oriented x3, Normal Mood/Affect Skin: Normal Color, Warm/Dry Results Results/Procedures Labs Laboratory Tests 08/08/21 05:10 08/08/21 05:21 Patient resulted labs reviewed. Imaging: Reviewed Imaging Report Assessment/Plan Assessment and Plan Assess & Plan/Chief Complaint Scrotal edema s/p hydrocelectomy No leukocytosis or fever so infectoin unlikely but cover with IV abx for now Management per primary Surgery consulted IDDMII Fasting blood sugar only 134 this AM Hold home insulin and treat with sliding scale NPO per surgery HTN HLD Resume home meds Diagnosis/Problems Diagnosis/Problems (1) Diabetes mellitus, type II, insulin dependent (2) Hypertension (3) Hypercholesterolemia YONIS BRENNER MD August 08, 2021 11:02
[2021-08-08 11:35] VITALS: BP 143/79
--- NOTE | 2021-08-08 11:35 | HISTORY AND PHYSICAL ---
DATE OF SERVICE: ADMISSION HISTORY AND PHYSICAL SUMMARY: A 66-year-old white man, who underwent left hydrocelectomy for a very large hydrocele on 07/23/2021. I saw him in the office a week later at his request because of the swelling. He had the usual postoperative swelling, no evidence of problem, no drainage, no infection, then he called again 2 to 3 days ago complaining of increased swelling and problem. He was sent to the emergency room in [place] where his Dr. Welsh is and was admitted for IV antibiotics. I talked to Dr. Welsh on morning and the patient was getting better. However, the nurse called me in the afternoon, saying that swelling is getting worse. He had drainage and ultrasound of the testicle, which was done there that morning where the testicle to be okay. No actual evidence of abscess. His white count was always normal and no fever. I had one of the surgeons see him over there, but he was not familiar with the scrotal problems, so I transferred the patient here. On physical exam, I believe the scrotum is much better than the last time I saw him at the office. He is healing well. There is no evidence of cellulitis. It is not hot. It is not tender. It is not red. He seems to be responding well to the IV antibiotics. The rest of the history and physical exam is unchanged from his preop history and physical. IMPRESSION: Scrotal swelling, possible infection post left hydrocelectomy for a large hydrocele. PLAN: 1. Continue present management. 2. We will consult Dr. Villalobos for just a second opinion for possible surgery and also coverage for the weekend since I am off. 3. I asked , the hospitalist to manage his diabetes and his medical status. Plan was fully explained to the patient and I told him that I will be calling everyday checking on him. Job ID: [id number] DocumentID: [id number] Dictated Date: 08/08/2021 07:26:59 Branch Examiner Date: 08/08/2021 10:05:30 Dictated By: RANDALL SCHOFIELD MD [facility]
[2021-08-08] MEDS: inSUlin ASPART (NovoLOG) 1 UNIT/0.01 ML (CHARGE PER UNIT) SC SCH ×3 (12:04→21:32)
[2021-08-08] MEDS: VANCOMYCIN 1500 MG/NS 500 ML IVPB IV SCH ×2 (14:46)
[2021-08-08 16:10] VITALS: BP 139/76
--- NOTE | 2021-08-08 16:57 | Consultation - Surgery ---
History of Present Illness History of Present Illness Patient Consulted On(maye/time) 08/08/21 16:49 Date Seen by Provider: August 08, 2021 Time Seen by Provider: 08:15 History of Present Illness Consult requested by Dr. Jimenez for second opinion of scrotal swelling. Patient is a 66-year-old male who underwent left hydrocelectomy on 07/24/2021. Patient reports no significant issues. Patient postoperatively had swelling to the scrotum. He was admitted to the hospital in the [place] and was given IV antibiotics. Patient states that he has little discomfort due to the swelling but otherwise has been doing good. He feels that he is getting better. Questions if its may be even getting smaller. Patient has had a little bit of bloody drainage. He states that nothing was seems to make it better or worse. He is wearing a scrotal support. Patient had normal white count. He has been on IV antibiotics. He has not had any fever sweats chills shortness of breath or chest pain. Allergies and Home Medications Allergies Coded Allergies: No Known Drug Allergies (Unverified , 05/22/20) Patient Home Medication List Home Medication List Reviewed: Yes Amlodipine Besylate (Amlodipine Besylate) 10 Mg Tablet, 10 MG PO DAILY, (Reported) Entered as Reported by: ROCKY CORTÉS on 05/22/20 1116 Last Action: Continued Aspirin (Aspirin EC) 81 Mg Tablet.dr, 81 MG PO DAILY, (Reported) Entered as Reported by: AVIS ARELLANO on 08/08/21 1036 Last Action: Continued Atorvastatin Calcium (Atorvastatin Calcium) 40 Mg Tablet, 40 MG PO HS, (Reported) Entered as Reported by: AVIS ARELLANO on 08/08/21 1036 Last Action: Continued Cholecalciferol (Vitamin D3) (Vitamin D3) 50 Mcg (2000 Unit) Capsule, 50 MCG PO DAILY, (Reported) Entered as Reported by: AVIS ARELLANO on 08/08/21 1036 Last Action: Converted Dapagliflozin/Metformin HCl (Xigduo Xr 5 mg-1,000 mg Tablet) 5 Mg-1,000 Mg Tab.bp.24h, 2 EA PO DAILY, (Reported) Entered as Reported by: AVIS ARELLANO on 08/08/21 1036 Last Action: Held Furosemide (Furosemide) 20 Mg Tablet, 20 MG PO DAILY, (Reported) Entered as Reported by: AVIS ARELLANO on 08/08/211035 Last Action: Continued Insulin Detemir (Levemir Flextouch) 100 Unit/Ml (3 Ml) Insuln.pen, 32 UNIT SQ DAILY, (Reported) Entered as Reported by: AVIS ARELLANO on 08/08/211035 Last Action: Reviewed Insulin Detemir (Levemir Flextouch) 100 Unit/Ml (3 Ml) Insuln.pen, 34 UNIT SQ 1800, (Reported) Entered as Reported by: AVIS ARELLANO on 08/08/211035 Last Action: Reviewed Insulin Lispro (Humalog Kwikpen) 100 Unit/Ml Insuln.pen, 20 UNIT SQ AC, (Reported) Entered as Reported by: AVIS ARELLANO on 08/08/211035 Last Action: Held Liraglutide (Victoza 3-Pio) 0.6 Mg/0.1 Ml (18 Mg/3 Ml) Pen.injctr, 1.8 MG SQ DAILY, (Reported) Entered as Reported by: CORI HERNANDEZ on 07/16/21 1228 Last Action: Held Lisinopril/Hydrochlorothiazide (Lisinopril-Hctz 20-12.5 mg Tab) 1 Each Tablet, 1 TAB PO DAILY, (Reported) Entered as Reported by: ROCKY CORTÉS on 05/22/201115 Last Action: Converted Metoprolol Tartrate (Metoprolol Tartrate) 25 Mg Tablet, 25 MG PO BID, (Reported) Entered as Reported by: AVIS ARELLANO on 08/08/211035 Last Action: Continued Discontinued Medications Atorvastatin Calcium (Atorvastatin Calcium) 10 Mg Tablet, 10 MG PO DAILY, (Reported) Discontinued Reason: No Longer Taking Entered as Reported by: ROCKY CORTÉS on 05/22/201115 Last Action: Discontinued Cephalexin (Cephalexin) 500 Mg Tablet, 500 MG PO BID Discontinued Reason: No Longer Taking Prescribed by: MAXIMO MCCULLOUGH on 07/23/211125 Last Action: Discontinued Insulin Detemir (Levemir Flextouch) 100 Unit/1 Ml Insuln.pen, 30 UNITS SC BID, (Reported) Discontinued Reason: Duplicate Order Entered as Reported by: ROCKY CORTÉS on 05/22/201115 Last Action: Discontinued Insulin Lispro (Humalog Kwikpen) 100 Unit/1 Ml Insuln.pen, 20 UNITS SC TIDWM, (Reported) Discontinued Reason: Duplicate Order Entered as Reported by: ROCKY CORTÉS on 05/22/20 111 Last Action: Discontinued Metformin HCl (Metformin HCl ER) 500 Mg Tab.er.24h, 1,000 MG PO BID, (Reported) Discontinued Reason: No Longer Taking Entered as Reported by: ROCKY CORTÉS on 05/22/201115 Last Action: Discontinued Oxycodone HCl/Acetaminophen (Oxycodone-Acetaminophen 5-325) 5 Mg-325 Mg Tablet, 1-2 EACH PO Q4H PRN for PAIN-SEVERE Discontinued Reason: No Longer Taking Prescribed by: MAXIMO MCCULLOUGH on 07/23/211126 Last Action: Discontinued Past Clcstrl-Ittskz-Vpnmtn Hx Patient Social History Former Smoker, Quit: Jul 16, 2008 Type Used: Cigarettes 2nd Hand Smoke Exposure: No Recent Hopitalizations: No Alcohol Use?: No Have you traveled recently?: No Immunizations Up To Date Date of Influenza Vaccine: Jan 15, 2021 Seasonal Allergies Seasonal Allergies: No Surgeries History of Surgeries: Yes (hand, TOE AMPUTATION, AORTIC VALVE REPLACEMENT 2020, hydrocelectomy left) Surgeries: Orthopedic Respiratory History of Respiratory Disorde: No Cardiovascular History of Cardiac Disorders: Yes (pulmonary hypertension, AORTIC VALVE REPLACED) Cardiac Disorders: Hypertension, Valvular Heart Disease Neurological History of Neurological Disord: No Genitourinary History of Genitourinary Disor: No Gastrointestinal History of Gastrointestinal Di: No Musculoskeletal History of Musculoskeletal Dis: No Endocrine History of Endocrine Disorders: Yes Endocrine Disorders: Diabetes, Insulin dep HEENT History of HEENT Disorders: No Cancer History of Cancer: No Psychosocial History of Psychiatric Problem: No Integumentary History of Skin or Integumenta: No Reviewed Nursing Assessment Reviewed/Agree w Nursing PMH: Yes Family Medical History Significant Family History: No Pertinent Family Hx Review of Systems-General Constitutional: No chills, No diaphoresis, No fever EENTM: No blurred vision, No double vision Respiratory: No cough, No dyspnea on exertion Cardiovascular: No chest pain Gastrointestinal: No abdominal pain, No constipation, No nausea, No vomiting Genitourinary: No decreased output; other (scrotal swelling) Musculoskeletal: No back pain, No joint pain Skin: No change in color, No change in hair/nails Psychiatric/Neurological: Denies Anxiety, Denies Depressed, Denies Emotional Problems All Other Systems Reviewed Negative Unless Noted: Yes (Negative excepted noted.) Physical Exam-General Problems Physical Exam Vital Signs Vital Signs - First Documented Capillary Refill : General Appearance: WD/WN, no apparent distress HEENT: PERRL/EOMI, normal ENT inspection Neck: non-tender, normal inspection Respiratory: chest non-tender, no respiratory distress, no accessory muscle use Cardiovascular: regular rate, rhythm, no JVD Gastrointestinal: non tender, soft Genital/Rectal: other (left sided scrotal swelling, midline scrotal incision, minimal blood draining) Back: no CVA tenderness, no vertebral tenderness Extremities: normal range of motion, normal inspection Neurologic/Psychiatric: alert, normal mood/affect, oriented x 3 Skin: normal color, warm/dry Lymphatic: no adenopathy Data Review Labs Laboratory Tests 08/08/21 05:10: White Blood Count 6.1, Red Blood Count 4.17L, Hemoglobin 12.1L, Hematocrit 37L, Mean Corpuscular Volume 89, Mean Corpuscular Hemoglobin 29, Mean Corpuscular Hemoglobin Concent 33, Red Cell Distribution Width 14.7H, Platelet Count 492H, Mean Platelet Volume 9.3 08/08/21 05:21: Sodium Level 139, Potassium Level 4.2, Chloride Level 105, Carbon Dioxide Level 23, Anion Gap 11, Blood Urea Nitrogen 15, Creatinine 0.65, Estimat Glomerular Filtration Rate 105, BUN/Creatinine Ratio 23, Glucose Level 134H, Calcium Level 9.1, Corrected Calcium 9.9, Total Bilirubin 0.2, Aspartate Amino Transf (AST/SGOT) 27, Alanine Aminotransferase (ALT/SGPT) 37, Alkaline Phosphatase 98, Total Protein 6.8, Albumin 3.0L 08/08/21 11:57: Glucometer 127H 08/08/21 16:41: Glucometer 206H Assessment/Plan Assessment/Plan Assessment/Plan Scrotal swellinglikely hematoma Status post left hydrocelectomy Diabetes Long-term antiplatelet use. Patient with scrotal swelling which I feel is most likely a hematoma. I do not think there is infection but he has been covered with IV antibiotics. His white count is normal. Would continue supportive measures at this time and continue to monitor. If has any change would proceed with opening the area. He is on antiplatelet but due to his medical history I think he needs to stay on this. As long as this continues to stable it should resolve on its own unless it becomes infected. Patient understands and agrees with plan. STEPHEN DORMAN DO August 08, 2021 16:57
[2021-08-08 20:01] VITALS: BP 122/75
[2021-08-08] MEDS: meTOprolol TARTRATE 25 MG (LOPRESSOR) TABLET PO SCH (20:53)
[2021-08-09 00:16] VITALS: BP 137/82
[2021-08-09] MEDS: CEFEPIME 1,000 MG/NS 50 ML IVPB IV SCH ×8 (01:34→19:19)
[2021-08-09] MEDS: VANCOMYCIN 1500 MG/NS 500 ML IVPB IV SCH ×4 (03:38→15:31)
[2021-08-09] MEDS: LACTATED RINGERS 1,000 ML IV SCH ×2 (03:50→15:33)
[2021-08-09 04:25] VITALS: BP 135/88
[2021-08-09] MEDS: inSUlin ASPART (NovoLOG) 1 UNIT/0.01 ML (CHARGE PER UNIT) SC SCH ×4 (06:32→20:29)
[2021-08-09 08:33] VITALS: BP 146/85
[2021-08-09] MEDS: FUROSEMIDE 20 MG (LASIX) TAB PO SCH (09:34)
[2021-08-09] MEDS: ASPIRIN E.C. 81 MG (ECOTRIN) TAB PO SCH (09:34)
[2021-08-09] MEDS: meTOprolol TARTRATE 25 MG (LOPRESSOR) TABLET PO SCH ×2 (09:34→19:19)
[2021-08-09] MEDS: amLODIPine 10 MG (NORVASC) TAB PO SCH (09:34)
[2021-08-09] MEDS: lisINopril 20 MG (PRINIVIL) TABLET PO SCH (09:34)
[2021-08-09] MEDS: VITAMIN D3 25 MCG (1,000 UNITS) TABLET PO SCH (09:34)
--- NOTE | 2021-08-09 10:49 | Progress Note - Surgery ---
Subjective Date Seen by a Provider: August 09, 2021 Time Seen by a Provider: 10:46 Subjective/Events-last exam Patient doing okay. Patient states no significant pain or discomfort at this time. That has continued to improve. Swelling approximately same as yesterday. No other complaints at this time denies any nausea vomiting fever sweats chills shortness of breath or chest pain. Objective Exam Vital Signs Date Time Temp Pulse Resp B/P (MAP) Pulse Ox O2 Delivery O2 Flow Rate FiO2 08/09/21 08:33 35.8 86 18 146/85 (105) 96 Room Air 08/09/21 08:16 Room Air 08/09/21 04:25 36.9 86 17 135/88 (104) 94 Room Air 08/09/21 00:16 37.0 71 17 137/82 (100) 94 Room Air 08/08/21 20:59 Room Air 08/08/21 20:01 36.2 99 20 122/75 (91) 93 Room Air 08/08/21 16:10 36.1 110 18 139/76 (97) 92 Room Air 08/08/21 11:35 37.0 92 19 143/79 (100) 95 Room Air I & O 08/09/21 07:00 Intake Total 2360 ml Output Total 2 ml Balance 2358 ml Capillary Refill : General Appearance: No Apparent Distress, WD/WN HEENT: PERRL/EOMI, Moist Mucous Membranes Neck: Normal Inspection, Supple Respiratory: Lungs Clear, No Respiratory Distress Cardiovascular: Regular Rate, Rhythm, No Murmur Gastrointestinal: non tender, soft Extremity: Normal Capillary Refill, No Calf Tenderness, No Pedal Edema Neurologic/Psychiatric: Alert, Oriented x3, Normal Mood/Affect Skin: Normal Color, Warm/Dry Lymphatic: No Adenopathy Other comments Scrotal swelling same as yesterday does not appear to be infected. Scant sanguinous drainage Results Lab Laboratory Tests 08/08/21 11:57: Glucometer 127H 08/08/21 16:41: Glucometer 206H 08/08/21 21:16: Glucometer 279H 08/09/21 05:28: Glucometer 214H Assessment/Plan Assessment/Plan Assessment/Plan Scrotal swellinglikely hematoma Status post left hydrocelectomy Diabetes Long-term antiplatelet use. Patient with scrotal swelling which I feel is most likely a hematoma. I do not think there is infection covered with IV antibiotics. Would continue supportive measures at this time and continue to monitor. If has any change would proceed with opening the area. He is on antiplatelet but due to his medical history I think he needs to stay on this. As long as this continues to stable it should resolve on its own unless it becomes infected. Patient understands and agrees with plan. STEPHEN DORMAN DO August 09, 2021 10:49
[2021-08-09 11:27] VITALS: BP 120/75
[2021-08-09] MEDS: inSUlin ASPART (NovoLOG) 1 UNIT/0.01 ML (CHARGE PER UNIT) SQ SCH ×2 (11:56→17:17)
[2021-08-09] MEDS ORDERED: TROUGH ORDER-PHARMACY XX ONE (14:00)
[2021-08-09 15:44] VITALS: BP 135/82
[2021-08-09 19:23] VITALS: BP 148/78
[2021-08-10] VITALS: BP 153/74
[2021-08-10] MEDS: CEFEPIME 1,000 MG/NS 50 ML IVPB IV SCH ×8 (01:50→17:40)
[2021-08-10] MEDS: VANCOMYCIN 1500 MG/NS 500 ML IVPB IV SCH ×4 (03:21→15:39)
--- NOTE | 2021-08-10 06:17 | Progress Note - Surgery ---
Subjective Date Seen by a Provider: August 10, 2021 Time Seen by a Provider: 06:13 Subjective/Events-last exam Minimal discomfort. Has a little bloody drainage from incision. Tolerating diet. Swelling about the same size. No new complaints. Denies n/v fever sweats chills shortness of breath or chest pain. Objective Exam Vital Signs Date Time Temp Pulse Resp B/P (MAP) Pulse Ox O2 Delivery O2 Flow Rate FiO2 08/10/21 00:00 36.9 82 17 153/74 (100) 94 Room Air 08/09/21 19:29 Room Air 08/09/21 19:23 37.3 97 22 148/78 (101) 93 Room Air 08/09/21 15:44 36.9 98 21 135/82 (99) 95 Room Air 08/09/21 11:27 36.9 87 19 120/75 (90) 96 Room Air 08/09/21 08:33 35.8 86 18 146/85 (105) 96 Room Air 08/09/21 08:16 Room Air I & O 08/10/21 07:00 Intake Total 2865 ml Balance 2865 ml Capillary Refill : General Appearance: No Apparent Distress, WD/WN HEENT: PERRL/EOMI, Moist Mucous Membranes Neck: Normal Inspection, Supple Respiratory: Chest Non Tender, No Accessory Muscle Use, No Respiratory Distress Cardiovascular: Regular Rate, Rhythm, No Murmur Gastrointestinal: non tender, soft Extremity: Normal Capillary Refill, No Calf Tenderness, No Pedal Edema Neurologic/Psychiatric: Alert, Oriented x3, Normal Mood/Affect Skin: Normal Color, Warm/Dry Lymphatic: No Adenopathy Other comments scrotal swelling same as yesterday, small pinhole at incision with scant sanguineous drainage Results Lab Laboratory Tests 08/09/21 11:18: Glucometer 206H 08/09/21 14:01: Vancomycin Level Trough 16.0 08/09/21 15:49: Glucometer 222H 08/09/21 20:16: Glucometer 237H 08/10/21 05:24: Glucometer 245H Assessment/Plan Assessment/Plan Assessment/Plan Scrotal swellinglikely hematoma Status post left hydrocelectomy Diabetes Long-term antiplatelet use. Patient with scrotal swelling which I feel is most likely a hematoma. I do not think there is infection but covered with IV antibiotics. Would continue supportive measures at this time and continue to monitor. If has any change would proceed with opening the area. He is on antiplatelet (Aspirin) but due to his medical history I think he needs to stay on this. Will make npo after midnight in case we need to drain tomorrow, if not likely home tomorrow. STEPHEN DORMAN DO August 10, 2021 06:17
[2021-08-10] MEDS: LACTATED RINGERS 1,000 ML IV SCH ×2 (06:35→17:40)
[2021-08-10] MEDS: inSUlin ASPART (NovoLOG) 1 UNIT/0.01 ML (CHARGE PER UNIT) SC SCH ×4 (06:37→20:19)
[2021-08-10] MEDS: inSUlin ASPART (NovoLOG) 1 UNIT/0.01 ML (CHARGE PER UNIT) SQ SCH ×3 (06:37→17:39)
[2021-08-10 07:38] VITALS: BP 123/78
[2021-08-10] MEDS: VITAMIN D3 25 MCG (1,000 UNITS) TABLET PO SCH (09:02)
[2021-08-10] MEDS: ASPIRIN E.C. 81 MG (ECOTRIN) TAB PO SCH (09:02)
[2021-08-10] MEDS: lisINopril 20 MG (PRINIVIL) TABLET PO SCH (09:03)
[2021-08-10] MEDS: FUROSEMIDE 20 MG (LASIX) TAB PO SCH (09:03)
[2021-08-10] MEDS: amLODIPine 10 MG (NORVASC) TAB PO SCH (09:03)
[2021-08-10] MEDS: meTOprolol TARTRATE 25 MG (LOPRESSOR) TABLET PO SCH ×2 (09:03→19:35)
[2021-08-10 15:48] VITALS: BP 148/75
[2021-08-10 23:05] VITALS: BP 133/79
[2021-08-11] MEDS: CEFEPIME 1,000 MG/NS 50 ML IVPB IV SCH ×4 (00:55→06:48)
[2021-08-11] MEDS: VANCOMYCIN 1500 MG/NS 500 ML IVPB IV SCH ×2 (03:17)
[2021-08-11] MEDS: inSUlin ASPART (NovoLOG) 1 UNIT/0.01 ML (CHARGE PER UNIT) SC SCH (06:47)
[2021-08-11] MEDS: inSUlin ASPART (NovoLOG) 1 UNIT/0.01 ML (CHARGE PER UNIT) SQ SCH (07:18)
[2021-08-11 07:51] VITALS: BP 159/93
[2021-08-11] MEDS: FUROSEMIDE 20 MG (LASIX) TAB PO SCH (09:12)
[2021-08-11] MEDS: meTOprolol TARTRATE 25 MG (LOPRESSOR) TABLET PO SCH (09:12)
[2021-08-11] MEDS: VITAMIN D3 25 MCG (1,000 UNITS) TABLET PO SCH (09:12)
[2021-08-11] MEDS: ASPIRIN E.C. 81 MG (ECOTRIN) TAB PO SCH (09:12)
[2021-08-11] MEDS: lisINopril 20 MG (PRINIVIL) TABLET PO SCH (09:12)
[2021-08-11] MEDS: amLODIPine 10 MG (NORVASC) TAB PO SCH (09:12)
[2021-08-11] MEDS: LACTATED RINGERS 1,000 ML IV SCH (09:14)
--- NOTE | 2021-08-11 09:26 | Progress Note - Urology ---
Progress Note-Urology Progress Notes/Assess & Plan Progress/Assessment & Plan CONTINUES WELL. NO MUCH PAIN. HOME WITH INSTRUCTIONS Final Diagnosis LT SCROTAL HEMATOMA RANDALL SCHOFIELD MD August 11, 2021 09:26
--- NOTE | 2021-08-11 09:30 | Discharge Inst-Urology ---
Discharge Inst-Urology Reconcile Patient Problems Problems Reviewed?: Yes Final Diagnosis LT SCROTAL HEMATOMA Patient Instructions/Follow Up Plan/Assessment/Instructions Please make appointment to been seen in office in 2 weeks. Rest till then Scrotal support till appointment Hold ASA and if no bleeding or increase swelling in 72 hours, may resume it Fill up previous Rx for ABX he has at home Increase oral fluids for 48 hours and then as needed. Diet as tolerated. If questions or concerns contact your physician Or seek help at emergency department. RANDALL SCHOFIELD MD August 11, 2021 09:30
[2021-08-11 11:59] VITALS: BP 159/93
--- NOTE | 2021-08-12 05:20 | DISCHARGE SUMMARY ---
DATE OF SERVICE: ADMITTING DIAGNOSES: Scrotal swelling, hematoma, possible infection, post left hydrocelectomy for a large hydrocele. DISCHARGE DIAGNOSIS: Left hematoma. SUMMARY: A 66-year-old white man admitted by transfer from [facility]. He underwent a left hydrocelectomy on 07/23, developed swelling, was admitted to [place] and he was transferred here because of this concern about it. Never had any fever. White count remained normal and he remained afebrile. History and physical as dictated. I went ahead and consulted Dr. Villalobos for second opinion to confirm the Dx of hematoma and no need for surgery at this point unless it gets worse, I also consulted Dr. Borjas for management of diabetes and medical status. Dr. Villalobos saw him over the weekend since I was gone. He remained unchanged as I said afebrile. No much pain and we decided to just observe let him go home on rest scrotal support. I told him to hold his aspirin for a few days and after 72 hours if no bleeding or worsening of the swelling to go back on it. I will see him back in my office in 2 weeks. He is to contact me or come to the emergency room with any problem. He has a prescription for antibiotic given to him prior to admission, he will fill that up. CC: Dr. Borjas -- requested, unable to deliver Job ID: [id number] DocumentID: [id number] Dictated Date: 08/11/2021 09:39:14 Pole Framer Machine Date: 08/12/2021 05:19:46 Dictated By: RANDALL SCHOFIELD MD MTDD
== END 2021-08-11 12:00 | disposition home or self-care (01) ==
LOC: 4TH 23:31
PROVIDERS: ADMIT Urology; ATTEND Urology
DX: N99.840 Postprocedural hematoma of a genitourinary system organ or structure following a genitourinary system procedure (principal); N49.2 Inflammatory disorders of scrotum; E11.9 Type 2 diabetes mellitus without complications; Z79.02 Long term (current) use of antithrombotics/antiplatelets; Z98.890 Other specified postprocedural states; Z79.4 Long term (current) use of insulin; Z79.84 Long term (current) use of oral hypoglycemic drugs
CPT/HCPCS: 80053; 80202; 82947 ×4; 85027; 96372 ×4; 96374; 96375; 96376 ×4; G0378; G0379; 36415; 96361; 96365; 96366; 96367